=== PATIENT | female | born 1985 | race American Indian/Alaskan Native ===

== ENCOUNTER 2018-09-11 14:04 | Day surgery (SDC) | payer OTHER ==
[~2018-09-11 14:04] MED LIST: ANCEF/STERILE WATER 2 GM/20 ML IV NR
[2018-09-11] MEDS ORDERED: LACTATED RINGERS 1,000 ML IV SCH (15:00)
[2018-09-11] MEDS ORDERED: VERSED IV NR (15:00)
[2018-09-11 15:13] LABS: Hematocrit 30.3 % (30.3-42.9); Hemoglobin 9.9 gm/dl (10.1-14.3)
[2018-09-11] MEDS ORDERED: DIPRIVAN 10 MG/ML IV ONE (16:32)
[2018-09-11] MEDS ORDERED: SUBLIMAZE ONE (16:33)
[2018-09-11] MEDS ORDERED: DILAUDID IV PRN (16:44)
--- NOTE | 2018-09-11 16:44 | Anesthesia Day of Surgery ---
Anesthesia Day of Surgery - Day of Surgery Patient Examined: Yes Patient H&P Reviewed: Yes Patient is NPO: Yes
--- NOTE | 2018-09-11 16:44 | Anesthesia Consultation ---
Anesthesia Consult and Med Hx Date of service: 09/11/18 - Airway Anesthetic Teeth Evaluation: Good ROM Head & Neck: Adequate Mental/Hyoid Distance: Adequate Mallampati Class: Class II Intubation Access Assessment: Probably Good - Pulmonary Exam CTA: Yes - Cardiac Exam Cardiac Exam: RRR - Pre-Operative Health Status ASA Pre-Surgery Classification: ASA1 Proposed Anesthetic Plan: General - Pulmonary Hx Smoking: No Hx Asthma: Yes (childhood) Hx Respiratory Symptoms: No Hx Sleep Apnea: No (RUTH PRE SCREEN NEGATIVE) - Cardiovascular System Hx Hypertension: No Hx Heart Attack/AMI: No Hx Percutaneous Transluminal Coronary Angioplasty (PTCA): No - Central Nervous System Hx Seizures: No CVA: No Hx Back Pain: Yes (2/2 kidney stones) - Gastrointestinal Hx Gastroesophageal Reflux Disease: No - Endocrine Hx Renal Disease: No Hx Liver Disease: No Hx Insulin Dependent Diabetes: No Hx Non-Insulin Dependent Diabetes: No Hx Thyroid Disease: No - Hematic Hx Anemia: Yes (iron supplements) - Other Systems Hx Obesity: No - Additional Comments Anesthesia Medical History Comments: No prior GA. No FHx anesthetic complications.
[2018-09-11] MEDS ORDERED: WATER FOR IRRIG STERILE IR ONE (17:10)
[2018-09-11] MEDS ORDERED: XYLOCAINE CARDIAC IV ONE (17:20)
[2018-09-11] MEDS ORDERED: ZOFRAN ONE (17:20)
[2018-09-11] MEDS ORDERED: DECADRON ONE (17:20)
--- NOTE | 2018-09-11 17:25 | Short Stay Summary ---
Short Stay Documentation Date of service: 09/11/18 - History H&P: obtained from office - Allergies and Medications Current Medications: Allergies No Known Allergies Allergy (Verified 09/05/18 14:03) Home Medications Medication Instructions Recorded Confirmed Last Taken Type Cholecalciferol (Vitamin D3) 2,000 unit PO DAILY 09/05/18 09/05/18 09/10/18 History [Vitamin D3] Ferrous Sulfate 324 mg PO DAILY 09/05/18 09/05/18 09/10/18 History traMADol [Ultram] 50 mg PO Q4HR PRN 09/05/18 09/05/18 09/10/18 History Active Medications Cefazolin Sodium (Ancef/Sterile Water 2 Gm/20 Ml) 2 gm IV PREOP NR Stop: 09/11/18 23:59 Hydromorphone HCl (Dilaudid) 0.5 mg IV Q10MIN PRN PRN Reason: Pain , Severe (7-10) Lactated Ringer's (Lactated Ringers) 1,000 mls @ 100 mls/hr IV DIRECT BIBI Last Admin: 09/11/18 15:00 Dose: 100 mls/hr Documented by: Midazolam HCl (Versed) 2 mg IV PREOP NR Stop: 09/11/18 23:59 Last Admin: 09/11/18 15:33 Dose: 2 mg Documented by: - Brief post op/procedure progress note Date of procedure: 09/11/18 Pre-op diagnosis: hydronephrosis Post-op diagnosis: same Procedure: cysto, rpg, stent Anesthesia: GETA Surgeon: ADORE MEJIA Estimated blood loss: none Condition: stable - Hospital course Hospital course: ultram, macrobid, norco on chart - Disposition Condition at discharge: Stable Disposition: DC-01 TO HOME OR SELFCARE Short Stay Discharge Plan Follow up with: PETERSON SULLIVAN MD [Primary Care Provider] - 7 Days
[2018-09-11 18:32] VITALS: BP 145/87
--- NOTE | 2018-09-11 18:55 | Operative Report ---
PREOPERATIVE DIAGNOSES: Bilateral hydronephrosis and fibroid. POSTOPERATIVE DIAGNOSES: Bilateral hydronephrosis and fibroid. PROCEDURES: Cystoscopy, bilateral retrograde pyelograms, bilateral stent placement. SURGEON: Juan Meza MD ANESTHESIA: General. ESTIMATED BLOOD LOSS: Minimal. FLUIDS: Crystalloid. COMPLICATIONS: No complications. INDICATIONS: This patient is a 33-year-old female, referred by Dr. Lucero for bilateral hydronephrosis. She also has a history of large fibroid and is scheduled to undergo V[facility]EX OPERATOR surgery. She had a normal cystogram. Her creatinine was 1.8. We discussed options. She agreed to proceed. She understands that we should leave the stents in until after her fibroid surgery. DESCRIPTION OF PROCEDURE: The patient was taken to the operative suite, placed in a supine position. After adequate general anesthesia, placed in a dorsal lithotomy position, prepped and draped in a sterile fashion. Pancystourethroscopy was performed with a 22-Montserratian Storz cystoscope, no acute bladder pathology. Bilateral retrograde pyelograms were obtained with an 8-Montserratian Kent catheter and 8 mL of contrast. Obvious fibroid could be appreciated. In the bladder, you could appreciate external compression. No tumors or stones were noted. Significant hydronephrosis could be appreciated and lateralization of the ureters. It was difficult, but was able to put ____ Glidewire in the ureter and a 6-Montserratian 24-cm double-J stent bilaterally with a short internal string. The patient tolerated the procedure well. She was extubated and taken to recovery room in stable condition. She will go home on Ultram, Gustavus, and Macrobid. She can keep the stents in for several months until after her V[facility]EX OPERATOR surgery. JOB# [id number] [facility]
--- NOTE | 2018-09-12 08:03 | Fluoroscopy Report ---
FLUOROSCOPY RETROGRADE UROGRAPHY: HISTORY: Hydronephrosis. FINDINGS: Fluoroscopy was provided by radiology during retrograde urography by the urologist. 7 fluoroscopic images were captured. The images demonstrate mild bilateral hydronephrosis although no filling defect is identified in either ureter. Subsequent images demonstrate placement of bilateral ureteral stents which adequately drained the collecting systems. Please correlate with the procedural report as needed. IMPRESSION: Bilateral ureteral stent placement.
== END 2018-09-11 19:16 | disposition home or self-care (01) ==
LOC: OR 14:04
PROVIDERS: ATTEND Urology
DX: N13.30 Unspecified hydronephrosis (principal); J45.909 Unspecified asthma, uncomplicated; D64.9 Anemia, unspecified; E05.90 Thyrotoxicosis, unspecified without thyrotoxic crisis or storm; Z79.899 Other long term (current) drug therapy; Z87.442 Personal history of urinary calculi
CPT/HCPCS: 36415; 52332; 74420; 81025; 85014; 85018; A4217; C1758; C1769; C2617; J0690; J1100; J2001; J2250; J2405; J2704; J3010; J7120; Q9967